=== PATIENT | female | born 1935 | race Caucasian/White ===

== ENCOUNTER 2017-12-26 09:56 | Inpatient (IN) ==
[2017-12-26] MEDS ORDERED: ACETAMINOPHEN 500 MG TABLET ONE (10:54)
[2017-12-26] MEDS ORDERED: ACETAMINOPHEN 500 MG TABLET PO STA (11:34)
[2017-12-26 11:42] LABS: Basophils % 0.4 % (0.0-0.8); Eosinophils # 0.1 10*3/uL (0.0-0.87); Eosinophils % 1.2 % (0.00-10.9); Hematocrit 42.9 VOL% (35.7-47.0); Hemoglobin 14.2 GM/DL (12.0-16.0); Immature Granulocytes % 0.7 %; Immature Granulocytes Absolute 0.05 #; Lymphocytes % 25.6 % (21.3-54.2); Mean Corpuscular HGB Conc 33.1 GM/DL (32-36); Mean Corpuscular Hemoglobin 30 PG (27-34); Mean Corpuscular Volume 90.3 FL (87-102); Mean Platelet Volume 10.5 FL (9.6-12.0); Monocytes # 0.6 10*3/uL (0.11-0.8); Neutrophils # 4.9 10*3/uL (1.4-7.4); Neutrophils % 64.1 % (38.7-73.9); Platelet Count 186 T/CUMM (130-400); Red Blood Count 4.75 MC/CUMM (3.8-5.5); Red Cell Distribution Width 13.4 % (9.3-17.3); White Blood Count 7.7 T/CUMM (4-12)
[2017-12-26 11:52] LABS: PT Patient Result 10.7 SECS; Partial Thromboplastin Time 26.1 SECS (0-40)
[2017-12-26 12:05] LABS: Alanine Aminotransferase 29 U/L (13-56); Albumin 3.5 G/DL (3.4-5.0); Alkaline Phosphatase 41 U/L (45-117); Aspartate Amino Transferase 22 U/L (0-37); Blood Urea Nitrogen 19 MG/DL (7-18); Calcium 9.4 MG/DL (8.5-10.1); Glucose 193 MG/DL (74-106); Osmolality,Calculated 279.8 MOS/KG (273-304); Potassium 4.2 MMOL/L (3.5-5.1); Sodium 137 MMOL/L (136-145); Total Protein 7.3 G/DL (6.4-8.3)
[2017-12-26] MEDS ORDERED: SODIUM CHLORIDE 0.9% 1,000 ML IV STA (13:22)
[2017-12-26 13:38] LABS: Apearance,Urine CLEAR (Clear); Bacteria,Urine Occasional /HPF (Few); Bilirubin,Urine Negative (Negative); Blood, Urine Negative (Negative); Glucose,Urine (UA) 150 mg/dL (Negative); Hyaline Casts,Urine 1 /LPF (0-3); Ketones,Urine Negative (Negative); Mucus,Urine Occasional /LPF (Occasional); Nitrite,Urine Negative (Negative); Protein,Urine Negative; RBC,Urine <1 /HPF (0-4); Squamous Epithelial Cell,Urine Occasional /HPF (0-10); Urine Color Yellow (Yellow); Urine Specific Gravity 1.012 (1.001-1.035); Urine Urobilinogen < 2.0 EU/DL (0.2-1.0); WBC,Urine <1 /HPF (0-6)
[2017-12-26 13:40] LABS: Barbiturates Screen,Urine Negative (Negative); Benzodiazepines Screen,Urine Negative (Negative); Cannabinoid Screen,Urine Negative (Negative); Opiate Screen,Urine Negative (Negative); Phencyclidine Screen,Urine Negative (Negative)
[2017-12-26] MEDS ORDERED: ACETAMINOPHEN 325 MG TABLET PO PRN (13:41)
[2017-12-26] MEDS ORDERED: ONDANSETRON 4 MG/2 ML VIAL IV PRN (13:41)
[2017-12-26] MEDS ORDERED: DEXTROSE 50% 25 GM/50 ML VIAL IV PRN (13:41)
[2017-12-26] MEDS ORDERED: DOCUSATE SODIUM 100 MG CAPSULE PO PRN (13:41)
[2017-12-26] MEDS ORDERED: LABETALOL 100 MG/20 ML VIAL IV PRN (13:41)
[2017-12-26] MEDS ORDERED: diphenhydrAMINE CAP 25 MG CAPSULE PO PRN (13:41)
[2017-12-26] MEDS ORDERED: GLUCAGON 1 MG VIAL IM PRN (13:41)
[2017-12-26] MEDS: MAGNESIUM OXIDE 400 MG TABLET PO SCH (18:13)
[2017-12-26] MEDS: PANTOPRAZOLE 40 MG TABLET PO SCH (18:15)
[2017-12-26] MEDS: LOVASTATIN 20 MG TABLET PO SCH (18:15)
[2017-12-26] MEDS: ASPIRIN EC 81 MG TABLET PO SCH (18:15)
[2017-12-26] MEDS: ESTRADIOL 2 MG TABLET PO SCH (18:16)
[2017-12-26] MEDS: NEBIVOLOL 5 MG TABLET PO SCH (18:17)
[2017-12-26] MEDS: INSULIN LISPRO 100 UNIT/ML SUBCUT SCH (18:17)
[2017-12-26] MEDS: APIXABAN 5 MG TABLET PO SCH (20:44)
[2017-12-26] MEDS ORDERED: ENOXAPARIN 40 MG/0.4 ML SYRINGE SUBCUT SCH (21:00)
[2017-12-27 07:32] LABS: Basophils % 0.3 % (0.0-0.8); Eosinophils # 0.2 10*3/uL (0.0-0.87); Eosinophils % 2.5 % (0.00-10.9); Hemoglobin 12.7 GM/DL (12.0-16.0); Immature Granulocytes % 0.6 %; Immature Granulocytes Absolute 0.04 #; Lymphocytes # 2.3 10*3/uL (1.4-4.0); Lymphocytes % 35.7 % (21.3-54.2); Mean Corpuscular HGB Conc 33.4 GM/DL (32-36); Mean Corpuscular Hemoglobin 30 PG (27-34); Mean Corpuscular Volume 89.4 FL (87-102); Mean Platelet Volume 10.3 FL (9.6-12.0); Monocytes # 0.5 10*3/uL (0.11-0.8); Monocytes % 7.8 % (1.7-12.7); Neutrophils # 3.4 10*3/uL (1.4-7.4); Neutrophils % 53.1 % (38.7-73.9); Platelet Count 161 T/CUMM (130-400); Red Blood Count 4.25 MC/CUMM (3.8-5.5); Red Cell Distribution Width 13.3 % (9.3-17.3); White Blood Count 6.4 T/CUMM (4-12)
[2017-12-27 08:16] LABS: Albumin 3.4 G/DL (3.4-5.0); Calcium 8.7 MG/DL (8.5-10.1); Osmolality,Calculated 278.4 MOS/KG (273-304); Potassium 3.8 MMOL/L (3.5-5.1); Total Protein 6.8 G/DL (6.4-8.3); VLDL CHOLESTEROL 26.2 MG/DL
[2017-12-27 08:17] LABS: Risk Ratio 2.09; Thyroid Stimulating Hormone 1.84 uIU/ml (0.358-3.74)
[2017-12-27] MEDS: INSULIN LISPRO 100 UNIT/ML SUBCUT SCH ×2 (08:19→16:27)
[2017-12-27] MEDS ORDERED: MAGNESIUM SULF RIDER 4 GM in PREMIX 1 EACH IV PRN ×2 (08:20→08:54)
[2017-12-27] MEDS ORDERED: MAGNESIUM SULF RIDER 2 GM in PREMIX 1 EACH IV PRN ×2 (08:20→08:54)
[2017-12-27] MEDS: ESTRADIOL 2 MG TABLET PO SCH (09:18)
[2017-12-27] MEDS: ASPIRIN EC 81 MG TABLET PO SCH (09:19)
[2017-12-27] MEDS: PANTOPRAZOLE 40 MG TABLET PO SCH (09:19)
[2017-12-27] MEDS: MAGNESIUM OXIDE 400 MG TABLET PO SCH (09:19)
[2017-12-27] MEDS: APIXABAN 5 MG TABLET PO SCH ×2 (09:19→20:59)
[2017-12-27] MEDS: LOVASTATIN 20 MG TABLET PO SCH (09:19)
[2017-12-27] MEDS: NEBIVOLOL 5 MG TABLET PO SCH (09:19)
[2017-12-27] MEDS ORDERED: GLUCAGON 1 MG VIAL IM PRN (10:13)
[2017-12-27] MEDS ORDERED: DEXTROSE 50% 25 GM/50 ML VIAL IV PRN (10:13)
[2017-12-27] MEDS: CLOTRIMAZOLE 1% CREAM 15 GM TUBE TOP SCH ×2 (14:56→20:59)
[2017-12-27] MEDS: MAGNESIUM CHLORIDE 64 MG TABLET PO SCH (20:59)
[2017-12-27] MEDS: metFORMIN 500 MG TABLET PO SCH (21:00)
[2017-12-28 06:16] LABS: Basophils % 0.5 % (0.0-0.8); Eosinophils # 0.2 10*3/uL (0.0-0.87); Eosinophils % 2.4 % (0.00-10.9); Hematocrit 41.8 VOL% (35.7-47.0); Immature Granulocytes % 0.3 %; Immature Granulocytes Absolute 0.03 #; Lymphocytes # 2.4 10*3/uL (1.4-4.0); Lymphocytes % 27.4 % (21.3-54.2); Mean Corpuscular HGB Conc 33.5 GM/DL (32-36); Mean Corpuscular Hemoglobin 30 PG (27-34); Mean Corpuscular Volume 88.9 FL (87-102); Mean Platelet Volume 10.3 FL (9.6-12.0); Monocytes # 0.6 10*3/uL (0.11-0.8); Monocytes % 6.7 % (1.7-12.7); Neutrophils # 5.4 10*3/uL (1.4-7.4); Neutrophils % 62.7 % (38.7-73.9); Platelet Count 182 T/CUMM (130-400); Red Cell Distribution Width 13.2 % (9.3-17.3); White Blood Count 8.7 T/CUMM (4-12)
[2017-12-28 06:46] LABS: Osmolality,Calculated 281.4 MOS/KG (273-304)
[2017-12-28] MEDS: ASPIRIN EC 81 MG TABLET PO SCH (09:52)
[2017-12-28] MEDS: APIXABAN 5 MG TABLET PO SCH (09:52)
[2017-12-28] MEDS: NEBIVOLOL 5 MG TABLET PO SCH (09:52)
[2017-12-28] MEDS: metFORMIN 500 MG TABLET PO SCH (09:52)
[2017-12-28] MEDS: LOVASTATIN 20 MG TABLET PO SCH (09:53)
[2017-12-28] MEDS: INSULIN LISPRO 100 UNIT/ML SUBCUT SCH ×2 (09:53→17:00)
[2017-12-28] MEDS: ESTRADIOL 2 MG TABLET PO SCH (09:53)
[2017-12-28] MEDS: MAGNESIUM CHLORIDE 64 MG TABLET PO SCH (09:53)
[2017-12-28] MEDS: PANTOPRAZOLE 40 MG TABLET PO SCH (09:53)
[2017-12-28] MEDS: CLOTRIMAZOLE 1% CREAM 15 GM TUBE TOP SCH (09:56)
[2017-12-28 16:36] VITALS: BP 135/64
== END 2017-12-28 19:52 | disposition home or self-care (01) | DRG 394 ==
LOC: N.ED 09:56 → N.EDINP 13:41 → N.2E 14:57
PROVIDERS: ADMIT Hospitalist; ATTEND Hospitalist